=== PATIENT | male | born 1995 | race Caucasian/White ===

== ENCOUNTER 2016-11-09 21:41 | Emergency (ER) | payer BC ==
--- NOTE | 2016-11-09 22:05 | ED ---
General Adult HPI - General Chief complaint: Chest Pain Stated complaint: Chest Pain Time Seen by Provider: 11/09/16 21:52 Source: patient, RN notes reviewed Mode of arrival: wheelchair Limitations: no limitations - History of Present Illness Initial comments: Patient 21-year-old male who presents emergency room today with chief complaint of chest pain off and on over the last 3 days. He describes it as a "pressure" . He states that only happens for a few seconds to minutes time. States earlier today he felt that he was lightheaded almost fainted. He states that when he came back around to feeling normally noticed that his heart was racing more. He states since this time having these feelings more often. Since that time currently no pain. He denies headache with associated symptoms. Does admit to increased waking last 4 months. States appetite has not been well as it been eating more junk food. States been less active not riding his bike. Patient denies any recent fever, chills, shortness of breath, back pain, abdominal pain, nausea or vomiting, numbness or tingling, dysuria or hematuria, constipation or diarrhea, headaches or visual changes, or any other complaints. - Related Data Home Medications Medication Instructions Recorded Confirmed No Known Home Medications [No 11/09/16 11/09/16 Known Home Medications] Allergies Allergy/AdvReac Type Severity Reaction Status Date / Time No Known Allergies Allergy Verified 11/09/16 22:13 Review of Systems ROS Statement: Those systems with pertinent positive or pertinent negative responses have been documented in the HPI. ROS Other: All systems not noted in ROS Statement are negative. Past Medical History Past Medical History: No Reported History History of Any Multi-Drug Resistant Organisms: None Reported Past Surgical History: No Surgical Hx Reported Past Psychological History: No Psychological Hx Reported Smoking Status: Current every day smoker Past Alcohol Use History: Occasional Past Drug Use History: None Reported General Exam - General Exam Comments Initial Comments: General: The patient is awake and alert, in no distress, and does not appear acutely ill. Eye: Pupils are equal, round and reactive to light, extra-ocular movements are intact. No nystagmus. There is normal conjunctiva bilaterally. No signs of icterus. Ears, nose, mouth and throat: There are moist mucous membranes and no oral lesions. Neck: The neck is supple, there is no tenderness or JVD. Cardiovascular: There is a regular rate and rhythm. No murmur, rub or gallop is appreciated. Respiratory: Lungs are clear to auscultation, respirations are non-labored, breath sounds are equal. No wheezes, stridor, rales, or rhonchi. Gastrointestinal: Soft, non-distended, non-tender abdomen without masses or organomegaly noted. There is no rebound or guarding present. No CVA tenderness. Bowel sounds are unremarkable. Musculoskeletal: Normal ROM, no tenderness. Strength 5/5. Sensation intact. Pulses equal bilaterally 2+. Neurological: A&O x 3. CN II-XII intact, There are no obvious motor or sensory deficits. Coordination appears grossly intact. Speech is normal. Skin: Skin is warm and dry and no rashes or lesions are noted. Psychiatric: Cooperative, appropriate mood & affect, normal judgment. Limitations: no limitations Course Vital Signs 11/09/16 11/09/16 21:44 22:32 Temperature 97.8 F 97.3 F L Pulse Rate 78 60 Respiratory 20 18 Rate Blood Pressure 150/88 165/88 O2 Sat by Pulse 100 98 Oximetry EKG Findings - EKG Comments: EKG Findings:: EKG performed at 2159: Shows normal sinus rhythm at 67 bpm. VT interval 132. QRS 102. QT/QTC 360/380. Medical Decision Making - Medical Decision Making Patient reexamined at this time shows no signs of distress. He wasn't overtly in the stretcher. He has no chest pain here in the emergency room. His vitals are stable. His EKG shows normal sinus rhythm. Patient's labs been reviewed are unremarkable. Negative cardiac enzymes. Patient's symptoms started earlier today have been persistent over the last 2-3 days. Patient will be discharged home at this time advised follow up his family doctor. He states does not have will be given on-call family medicine. Discussed with patient about possible Holter monitor. Patient advised to return to emergency room symptoms increase or worsen or for any other concerns. patient states understanding and is in agreement with this plan. - Lab Data Result diagrams: 11/09/16 22:20 11/09/16 22:20 Lab Results 11/09/16 11/09/16 11/09/16 Range/Units 22:20 22:20 22:20 WBC 9.1 (3.8-10.6) k/uL RBC 5.48 (4.30-5.90) m/uL Hgb 16.3 (13.0-17.5) gm/dL Hct 46.8 (39.0-53.0) % MCV 85.4 (80.0-100.0) fL MCH 29.7 (25.0-35.0) pg MCHC 34.7 (31.0-37.0) g/dL RDW 12.1 (11.5-15.5) % Plt Count 234 (150-450) k/uL Neutrophils % 55 % Lymphocytes % 27 % Monocytes % 12 % Eosinophils % 2 % Basophils % 1 % Neutrophils # 5.0 (1.3-7.7) k/uL Lymphocytes # 2.4 (1.0-4.8) k/uL Monocytes # 1.1 H (0-1.0) k/uL Eosinophils # 0.2 (0-0.7) k/uL Basophils # 0.1 (0-0.2) k/uL PT (9.0-12.0) sec INR (<1.1) APTT (22.0-30.0) sec Sodium 139 (137-145) mmol/L Potassium 4.2 (3.5-5.1) mmol/L Chloride 101 (98-107) mmol/L Carbon Dioxide 25 (22-30) mmol/L Anion Gap 13 mmol/L BUN 13 (9-20) mg/dL Creatinine 1.09 (0.66-1.25) mg/dL Est GFR (MDRD) Af Amer >60 (>60 ml/min/1.73 sqM) Est GFR (MDRD) Non-Af >60 (>60 ml/min/1.73 sqM) Glucose 87 (74-99) mg/dL Calcium 9.9 (8.4-10.2) mg/dL Magnesium 2.0 (1.6-2.3) mg/dL Total Bilirubin 0.6 (0.2-1.3) mg/dL AST 32 (17-59) U/L ALT 39 (21-72) U/L Alkaline Phosphatase 133 H (38-126) U/L Total Creatine Kinase 126 (55-170) U/L CK-MB (CK-2) 0.5 (0.0-2.4) ng/mL CK-MB (CK-2) Rel Index 0.4 Troponin I <0.012 (0.000-0.034) ng/mL Total Protein 7.8 (6.3-8.2) g/dL Albumin 4.8 (3.5-5.0) g/dL 11/09/16 Range/Units 22:20 WBC (3.8-10.6) k/uL RBC (4.30-5.90) m/uL Hgb (13.0-17.5) gm/dL Hct (39.0-53.0) % MCV (80.0-100.0) fL MCH (25.0-35.0) pg MCHC (31.0-37.0) g/dL RDW (11.5-15.5) % Plt Count (150-450) k/uL Neutrophils % % Lymphocytes % % Monocytes % % Eosinophils % % Basophils % % Neutrophils # (1.3-7.7) k/uL Lymphocytes # (1.0-4.8) k/uL Monocytes # (0-1.0) k/uL Eosinophils # (0-0.7) k/uL Basophils # (0-0.2) k/uL PT 11.4 (9.0-12.0) sec INR 1.1 (<1.1) APTT 24.0 (22.0-30.0) sec Sodium (137-145) mmol/L Potassium (3.5-5.1) mmol/L Chloride (98-107) mmol/L Carbon Dioxide (22-30) mmol/L Anion Gap mmol/L BUN (9-20) mg/dL Creatinine (0.66-1.25) mg/dL Est GFR (MDRD) Af Amer (>60 ml/min/1.73 sqM) Est GFR (MDRD) Non-Af (>60 ml/min/1.73 sqM) Glucose (74-99) mg/dL Calcium (8.4-10.2) mg/dL Magnesium (1.6-2.3) mg/dL Total Bilirubin (0.2-1.3) mg/dL AST (17-59) U/L ALT (21-72) U/L Alkaline Phosphatase (38-126) U/L Total Creatine Kinase (55-170) U/L CK-MB (CK-2) (0.0-2.4) ng/mL CK-MB (CK-2) Rel Index Troponin I (0.000-0.034) ng/mL Total Protein (6.3-8.2) g/dL Albumin (3.5-5.0) g/dL Disposition Clinical Impression: Sensation of chest pressure Narrative: Chest pressure resolved Disposition: HOME SELF-CARE Condition: Good Instructions: Chest Pain (ED) Additional Instructions: Please follow-up with family doctor in the next 1-2 days. Please return to emergency room if the symptoms increase or worsen or for any other concerns. Referrals: None,Stated [Primary Care Provider] - 1-2 days Nguyễn Tamez MD [REFERRING] - 1-2 days Katie Almeida MD [STAFF PHYSICIAN] - 1-2 days Time of Disposition: 23:14
[2016-11-09 22:30] LABS: Basophils # (A) 0.1 k/uL (0-0.2); Basophils % (A) 1 %; CH 30.4; CHCM 35.7; Eosinophils # (A) 0.2 k/uL (0-0.7); Eosinophils % (A) 2 %; HCT 46.8 % (39.0-53.0); HDW 2.61; HGB 16.3 gm/dL (13.0-17.5); Luc # (Auto) 0.24; Luc % (Auto) 3; Lymphocytes # (A) 2.4 k/uL (1.0-4.8); Lymphocytes % (A) 27 %; MCH 29.7 pg (25.0-35.0); MCHC 34.7 g/dL (31.0-37.0); MCV 85.4 fL (80.0-100.0); Mean Platelet Volume 6.8; Monocytes # (A) 1.1 k/uL (0-1.0); Monocytes % (A) 12 %; Neutrophils % (A) 55 %; RBC 5.48 m/uL (4.30-5.90); RDW 12.1 % (11.5-15.5); WBC 9.1 k/uL (3.8-10.6); WBC (Perox) 8.86
[2016-11-09 22:33] VITALS: RESP 18
[2016-11-09 22:40] LABS: ALT 39 U/L (21-72); AST 32 U/L (17-59); Alkaline Phosphatase 133 U/L (38-126); Anion Gap 13 mmol/L; Blood Urea Nitrogen 13 mg/dL (9-20); Calcium 9.9 mg/dL (8.4-10.2); Carbon Dioxide 25 mmol/L (22-30); Chloride 101 mmol/L (98-107); Glucose 87 mg/dL (74-99); Non-African American GFR(MDRD) >60 (>60 ml/min/1.73 sqM); Potassium 4.2 mmol/L (3.5-5.1); Sodium 139 mmol/L (137-145); Total Bilirubin 0.6 mg/dL (0.2-1.3); Total Protein 7.8 g/dL (6.3-8.2)
[2016-11-09 22:48] LABS: Creatine Kinase 126 U/L (55-170)
[2016-11-09 22:52] LABS: INR 1.1 (<1.1); Prothrombin Time 11.4 sec (9.0-12.0)
--- NOTE | 2016-11-09 22:56 | XR ---
EXAMINATION TYPE: XR chest 2V DATE OF EXAM: 11/09/2016 10:49 PM COMPARISON: 09/10/2013 HISTORY: Chest pain TECHNIQUE: Frontal and lateral views of the chest are obtained. FINDINGS: Heart and mediastinum are normal. Lungs are clear. Diaphragm is normal. Bony thorax and so ft tissues appear normal. IMPRESSION: Normal chest. No change
[2016-11-09 22:59] LABS: Creatine Kinase MB 0.5 ng/mL (0.0-2.4); Troponin I <0.012 ng/mL (0.000-0.034)
[2016-11-09 23:32] VITALS: BP 151/85; PULSE 69; TEMP 98
== END 2016-11-09 23:31 | disposition home or self-care (01) ==
LOC: EC 21:41
DX: R07.89 Other chest pain (principal); F17.200 Nicotine dependence, unspecified, uncomplicated
CPT/HCPCS: 36415; 71020; 80053; 82550; 82553; 83735; 84484; 85025; 85610; 85730; 93005; 99285

== ENCOUNTER 2017-05-12 19:13 | Emergency (ER) | payer BC ==
[2017-05-12 19:26] VITALS: BP 133/75; PULSE 60; RESP 18; TEMP 97.9
--- NOTE | 2017-05-12 19:53 | ED ---
General Adult HPI - General Chief complaint: Neck Pain/Injury Stated complaint: Neck Pain Time Seen by Provider: 05/12/17 19:15 Source: patient, RN notes reviewed Mode of arrival: ambulatory Limitations: no limitations - History of Present Illness Initial comments: This is a 22-year-old male who presents emergency Department complaining of having a sharp pain in the right side of his neck that last between 10 and 15 seconds. Patient states happened once yesterday and then never occurred again "bad and woke up at about 11:00 last night and vomited times one. Patient states he woke up today and had neck pain for one more time and then he went to work. 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 Patient states he had no pain no vomiting the rest of the day. Patient states he couldn't stop "he wanted to be checked out. Patient denies headache patient denies numbness weakness. Patient denies chest pain difficulty breathing first breath per patient denies any recent fever chills or cough. Patient denies any increased pain with movement. Patient denies any recent injury or trauma. - Related Data Home Medications Medication Instructions Recorded Confirmed No Known Home Medications [No 11/09/16 11/09/16 Known Home Medications] Allergies Allergy/AdvReac Type Severity Reaction Status Date / Time No Known Allergies Allergy Verified 05/12/17 19:25 Review of Systems ROS Statement: Those systems with pertinent positive or pertinent negative responses have been documented in the HPI. ROS Other: All systems not noted in ROS Statement are negative. Past Medical History Past Medical History: No Reported History History of Any Multi-Drug Resistant Organisms: None Reported Past Surgical History: No Surgical Hx Reported Past Psychological History: Anxiety, Depression Smoking Status: Current every day smoker Past Alcohol Use History: Occasional Past Drug Use History: None Reported General Exam - General Exam Comments Initial Comments: GENERAL: Patient is well-developed and well-nourished. Patient is nontoxic and well- hydrated and is in no acute distress. ENT: Neck is soft and supple. No significant lymphadenopathy is noted. Oropharynx is clear. Moist mucous membranes. Neck has full range of motion without eliciting any pain. EYES: The sclera were anicteric and conjunctiva were pink and moist. Extraocular movements were intact and pupils were equal round and reactive to light. Eyelids were unremarkable. PULMONARY: Unlabored respirations. Good breath sounds bilaterally. No audible rales rhonchi or wheezing was noted. CARDIOVASCULAR: There is a regular rate and rhythm without any murmurs gallops or rubs. SKIN: Skin is clear with no lesions or rashes and otherwise unremarkable. NEUROLOGIC: Patient is alert and oriented x3. Cranial nerves II through XII are grossly intact. Motor and sensory are also intact. Normal speech, volume and content. Symmetrical smile. MUSCULOSKELETAL: Normal extremities with adequate strength and full range of motion. No lower extremity swelling or edema. No calf tenderness. PSYCHIATRIC: Normal psychiatric evaluation. Normal interpersonal interactions appears functionally intact in deals appropriately with others. Patient is mildly anxious Limitations: no limitations Course Vital Signs 05/12/17 19:21 Temperature 97.9 F Pulse Rate 60 Respiratory 18 Rate Blood Pressure 133/75 O2 Sat by Pulse 99 Oximetry Medical Decision Making - Medical Decision Making Patient is currently asymptomatic. Patient appears to be highly anxious Disposition Clinical Impression: Neck pain Disposition: HOME SELF-CARE Instructions: Neck Pain (ED) Referrals: None,Stated [Primary Care Provider] - 1-2 days Time of Disposition: 19:52
== END 2017-05-12 20:22 | disposition home or self-care (01) ==
LOC: EC 19:13
DX: M54.2 Cervicalgia (principal); F17.200 Nicotine dependence, unspecified, uncomplicated
CPT/HCPCS: 99283

== ENCOUNTER 2020-02-15 20:33 | Emergency (ER) | payer OTHER ==
[2020-02-15] MEDS ORDERED: DIPH,PERTUS(ACELL)TETVAC-LF 0.5 ML VIAL IM ONE (20:34)
[2020-02-15] MEDS ORDERED: SODIUM CHLORIDE 0.9% 1,000 ML IV STA (20:34)
[2020-02-15 20:56] LABS: Basophils # (A) 0.1 k/uL (0-0.2); Basophils % (A) 1 %; Eosinophils # (A) 0.1 k/uL (0-0.7); Eosinophils % (A) 1 %; HCT 39.1 % (39.0-53.0); HGB 13.1 gm/dL (13.0-17.5); Lymphocytes # (A) 2.6 k/uL (1.0-4.8); Lymphocytes % (A) 13 %; MCH 30.8 pg (25.0-35.0); MCHC 33.4 g/dL (31.0-37.0); MCV 92.3 fL (80.0-100.0); Mean Platelet Volume 6.9; Monocytes # (A) 1.8 k/uL (0-1.0); Monocytes % (A) 9 %; Neutrophils # (A) 14.3 k/uL (1.3-7.7); Neutrophils % (A) 74 %; Platelet Count 257 k/uL (150-450); RBC 4.24 m/uL (4.30-5.90); RDW 12.7 % (11.5-15.5); WBC 19.3 k/uL (3.8-10.6)
[2020-02-15] MEDS ORDERED: fentaNYL (PF) 50 MCG/ML 2 ML AMP IVP PRN (21:00)
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
[2020-02-15] MEDS: fentaNYL (PF) 50 MCG/ML 2 ML AMP IVP PRN ×4 (21:05→22:00)
[2020-02-15 21:08] LABS: ALT 231 U/L (4-49); AST 401 U/L (17-59); African American GFR (CKD) >90 (>60 ml/min/1.73 sqM); Albumin 3.5 g/dL (3.5-5.0); Alcohol <10 mg/dL; Alkaline Phosphatase 86 U/L (38-126); Amylase 40 U/L (30-110); Anion Gap 8 mmol/L; Blood Urea Nitrogen 16 mg/dL (9-20); Calcium 8.3 mg/dL (8.4-10.2); Carbon Dioxide 24 mmol/L (22-30); Chloride 104 mmol/L (98-107); Glucose 127 mg/dL (74-99); Non-African American GFR(CKD) 85 (>60 ml/min/1.73 sqM); Sodium 136 mmol/L (137-145); Total Bilirubin 0.4 mg/dL (0.2-1.3); Total Protein 6.1 g/dL (6.3-8.2)
[2020-02-15 21:10] LABS: Creatine Kinase 448 U/L (55-170)
[2020-02-15 21:15] LABS: INR 1.1 (<1.2); Prothrombin Time 10.9 sec (9.0-12.0)
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
[2020-02-15 21:20] LABS: Partial Thromboplastin Time 20.2 sec (22.0-30.0); Potassium 3.5 mmol/L (3.5-5.1)
[2020-02-15 21:23] LABS: Creatine Kinase MB 1.9 ng/mL (0.0-2.4); Troponin I <0.012 ng/mL (0.000-0.034)
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
[2020-02-15] MEDS ORDERED: TRANEXAMIC ACID 1,000 MG in SODIUM CHLORIDE 0.9% 100 ML IV ONE (21:45)
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
--- NOTE | 2020-02-15 22:15 | XR ---
EXAMINATION TYPE: XR femur LT DATE OF EXAM: 02/15/2020 COMPARISON: Today HISTORY: Post reduction TECHNIQUE: 2 views FINDINGS: There is comminuted fracture of the left femur in the subtrochanteric region. There is large butterfl y fragment. There is separation of the fragments up to 2 cm. Compared to initial exam. Limited exam. Exam is limited. IMPRESSION: Significant improvement apposition and alignment of the fragments
[2020-02-15] MEDS ORDERED: ONDANSETRON 4 MG/2 ML VIAL IVP STA (22:23)
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
[2020-02-15 23:16] VITALS: BP 132/90; PULSE 108; RESP 18; TEMP 98
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
== END 2020-02-15 22:53 | disposition other institution (70) ==
LOC: EC 20:33
DX: S72.352A Displaced comminuted fracture of shaft of left femur, initial encounter for closed fracture (principal); S22.39XA Fracture of one rib, unspecified side, initial encounter for closed fracture; S32.021A Stable burst fracture of second lumbar vertebra, initial encounter for closed fracture; S36.113A Laceration of liver, unspecified degree, initial encounter; S01.411A Laceration without foreign body of right cheek and temporomandibular area, initial encounter; S61.412A Laceration without foreign body of left hand, initial encounter; R55 Syncope and collapse; Z23 Encounter for immunization; R00.0 Tachycardia, unspecified; F17.200 Nicotine dependence, unspecified, uncomplicated; V28.4XXA Motorcycle driver injured in noncollision transport accident in traffic accident, initial encounter; Y92.488 Other paved roadways as the place of occurrence of the external cause; Y93.55 Activity, bike riding
CPT/HCPCS: 99291; 99292; 96365; 96375 ×3; 90471; 27502; 36415; 93005; 86900; 86901; 80053; 82150; 82550; 82553; 83605; 83690; 84484; 85025; 85610; 85730; 86850; 86920; 80320; 72170; 73552; 71045; 72125; 70486; 70450; 71260; 74177; 90715; J2405; J0690; J3010; Q9967

== ENCOUNTER → 2020-06-22 | Outpatient (CLI) | payer OTHER ==
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
--- NOTE | 2020-06-22 17:01 | XR ---
EXAMINATION TYPE: XR lumbosacral spine min 4V DATE OF EXAM: 06/22/2020 CLINICAL HISTORY: Stable burst fracture of lumbar spine TECHNIQUE: Frontal neutral/flexion/extension, lateral, and oblique images of the lumbar spine are obt ained. COMPARISON: CT lumbar spine 06/22/2020. CT chest abdomen pelvis 02/15/2020. FINDINGS: There are 5 lumbar type vertebral bodies identified. There is vertebral body fracture of L 2 which is better appreciated on CT comparisons, with minimal posterior displacement which does not c hange between flexion, extension, and neutral lateral views of the spine. There is asymmetric mild he ight loss of the right L2 vertebral body redemonstrated. Remaining vertebral heights are normal. No s ignificant disc space narrowing. The overlying soft tissue appears unremarkable. IMPRESSION: L2 vertebral body burst fracture is better appreciated on CT comparisons. There is minimal posterior displacement, which does not significantly change between flexion and extension.
== END | disposition home or self-care (01) ==
LOC: RADCTMAIN 07:11
PROVIDERS: ATTEND Specialist
DX: M51.26 Other intervertebral disc displacement, lumbar region (principal); S32.021G Stable burst fracture of second lumbar vertebra, subsequent encounter for fracture with delayed healing
CPT/HCPCS: 72110; 72131

== ENCOUNTER → 2020-08-09 | Outpatient (CLI) | payer OTHER ==
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
== END ==
LOC: RADMRIMAIN 21:14
PROVIDERS: ATTEND Orthopaedic Surgery
DX: S83.281A Other tear of lateral meniscus, current injury, right knee, initial encounter (principal)

== ENCOUNTER → 2020-09-27 | Outpatient (CLI) | payer OTHER ==
--- NOTE | 2020-09-27 10:57 | CT ---
EXAMINATION TYPE: CT lumbar spine wo con DATE OF EXAM: 09/27/2020 9:40 AM COMPARISON: CT lumbar spine June 22, 2020 HISTORY: follow up burst fracture second lumbar vertebrae CT DLP: 967 mGycm Automated exposure control for dose reduction was used. Unenhanced CT of the lumbar spine was performed. Bone and soft tissue window settings are submitted as well as coronal and sagittal reconstructions. Redemonstration of 5 lumbar type vertebra. Persistent healing or healed fracture deformity through th e right aspect of the L2 vertebra with slight posterior retropulsion estimated up to 3 mm. No change from prior. No new fracture or dislocation. Stable slight scoliotic curvature on coronal images. Vert ebral body heights and disc space heights otherwise are maintained. Axial images show no new significant disc herniation. Incidental normal-appearing appendix, cecum and the right lower quadrant. IMPRESSION: Healing or healed L2 burst type fracture with stable alignment. Slight posterior retropul ilya is stable. No new fracture is evident.
== END | disposition home or self-care (01) ==
LOC: RADCTMAIN 08:56
PROVIDERS: ATTEND Nurse Practitioner
DX: M54.5 Low back pain (principal); G89.29 Other chronic pain; S32.021D Stable burst fracture of second lumbar vertebra, subsequent encounter for fracture with routine healing
CPT/HCPCS: 72131

== ENCOUNTER → 2021-01-28 | Outpatient (CLI) | payer OTHER ==
--- NOTE | 2021-01-28 12:40 | CT ---
EXAMINATION TYPE: CT lumbar spine wo con DATE OF EXAM: 01/28/2021 COMPARISON: HISTORY: Stable burst fracture of second Lumbar CT DLP: 887 mGycm CONTRAST: None TECHNIQUE: CT of the lumbar spine is performed on a spiral scan at 3 mm thick sections. Reconstructed images are performed in the coronal and sagittal planes. FINDINGS: L2: There is an oblique fracture from the right anterior lateral vertebral body to the posterior vert ebral body. There is approximately 0.5 cm posterior displacement of the right aspect of the fracture fragment. Second fracture line may be at the right pedicle. No spinal canal stenosis or foraminal jose nosis is present. Intervertebral disc spaces: No focal disc herniation or significant disc bulge is evident. No spina l canal stenosis or neural foraminal stenosis is present. Mild disc bulging with anterior thecal sac L4-5 may be present. Minimal disc bulge at L3-4 with intrathecal sac contact is present. IMPRESSION: 1. Old fracture of L2 with approximately 0.5 cm posterior wall displacement, stable from September
== END | disposition home or self-care (01) ==
LOC: RADCTMAIN 07:09
PROVIDERS: ATTEND Specialist
DX: S32.021A Stable burst fracture of second lumbar vertebra, initial encounter for closed fracture (principal)
CPT/HCPCS: 72131

== ENCOUNTER → 2023-12-26 | Outpatient (CLI) | payer BC ==
[2023-12-26 07:42] LABS: African American GFR (CKD) >90 (>60 ml/min/1.73 sqM); Anion Gap 9 mmol/L; Blood Urea Nitrogen 10 mg/dL (9-20); Carbon Dioxide 24 mmol/L (22-30); Chloride 107 mmol/L (98-107); Glucose 100 mg/dL (74-99); Non-African American GFR(CKD) >90 (>60 ml/min/1.73 sqM); Potassium 3.8 mmol/L (3.5-5.1); Sodium 140 mmol/L (137-145)
[2023-12-26 07:46] LABS: Basophils % (A) 0 %; Eosinophils # (A) 0.1 k/uL (0-0.7); Eosinophils % (A) 2 %; HCT 42.9 % (39.0-53.0); HGB 14.9 gm/dL (13.0-17.5); Lymphocytes # (A) 1.5 k/uL (1.0-4.8); Lymphocytes % (A) 23 %; MCH 30.4 pg (25.0-35.0); MCHC 34.8 g/dL (31.0-37.0); MCV 87.3 fL (80.0-100.0); Mean Platelet Volume 7.2; Monocytes # (A) 0.8 k/uL (0-1.0); Monocytes % (A) 12 %; Neutrophils % (A) 60 %; Platelet Count 243 k/uL (150-450); RBC 4.91 m/uL (4.30-5.90); RDW 12.4 % (11.5-15.5); WBC 6.7 k/uL (3.8-10.6)
[2023-12-26 07:51] LABS: INR 1.3 (<1.2); Partial Thromboplastin Time 31.7 sec (22.0-30.0); Prothrombin Time 13.6 sec (10.0-12.5)
[2023-12-26 07:51] LABS: Appearance,Urine Clear (Clear); Bilirubin,Urine Negative (Negative); Blood,Urine Negative (Negative); Color,Urine Colorless; Glucose,Urine (UA) Negative (Negative); Ketones,Urine Negative (Negative); Leukocyte Esterase,Urine Negative (Negative); Nitrite,Urine Negative (Negative); PH, Urine 5.5 (5.0-8.0); Protein,Urine Negative (Negative); Specific Gravity,Urine 1.008 (1.001-1.035); Urobilinogen,Urine <2.0 mg/dL (<2.0)
== END | disposition home or self-care (01) ==
LOC: LABWHC1 07:10
PROVIDERS: ATTEND Thoracic Surgery (Cardiothoracic Vascular Surgery)
DX: Z01.812 Encounter for preprocedural laboratory examination (principal); Z98.890 Other specified postprocedural states
CPT/HCPCS: 36415; 80051; 81003; 82565; 82947; 84520; 85025; 85610; 85730; 86850; 86900; 86901

== ENCOUNTER → 2023-12-27 | Day surgery (SDC) | payer BC, OTHER ==
[~2023-12-27] MED LIST: DEXAMETHASONE SOD PHOSPHATE 4 MG/ML 1 ML VIAL ONE; GLYCOPYRROLATE 0.2 MG/ML 2 ML VIAL ONE; LIDOCAINE 1% (10MG/ML) FOR IV START INTRADERMA PRN; LIDOCAINE 1% INJ 10MG/ML (20 ML MDV) ONE; MIDAZOLAM 2 MG/2 ML VIAL ONE; NEOSTIGMINE 1 MG/ML 10 ML VIAL ONE; PROPOFOL 10 MG/ML 20 ML VIAL IV ONE; ROCURONIUM 10 MG/ML (5 ML VIAL) IV ONE; ROPIVACAINE 5 MG/ML 30 ML VIAL ONE; SODIUM CHLORIDE 0.9% (PF) 10 ML VIAL ONE; SUCCINYLCHOLINE CHLORIDE 200 MG/10 ML VIAL IV ONE; fentaNYL (PF) 50 MCG/ML 2 ML AMP ONE
[2023-12-27] MEDS: LACTATED RINGERS 1,000 ML IV SCH (13:29)
[2023-12-27] MEDS: DEXAMETHASONE SOD PHOSPHATE 4 MG/ML 1 ML VIAL IV ONE (13:52)
[2023-12-27] MEDS: MIDAZOLAM 2 MG/2 ML VIAL IV PRN (14:05)
[2023-12-27] MEDS: ONDANSETRON 4 MG/2 ML VIAL IVP ONE (14:14)
[2023-12-27] MEDS: BUPIVACAINE (PF) 0.25% 30 ML VIAL SQ ONE ×2 (15:20)
--- NOTE | 2023-12-27 15:52 | P.OP ---
Date of Procedure: 12/27/23 Preoperative Diagnosis: 1. Right 5th rib mass Postoperative Diagnosis: Same Implants: None Anesthesia: ANNETTEA Surgeon: Prasanna Reyes Estimated Blood Loss (ml): 50 Pathology: other (right 5th rib) Condition: stable Disposition: PACU Indications for Procedure: This patient presented to me with a new lesion on his rib that began about a year ago. CT scan confirmed the lesion and I recommended resection. Operative Findings: Partial resection of right 5th rib. Description of Procedure: The patient was brought back to the operating room and placed in the supine position. General anesthesia was induced and he was intubated with a single lumen tube. His right chest was prepped and draped in the usual sterile fashion. Antibiotics were given. I made a transverse incision over the lesion and carried it down to the rib. This was circumferentially dissected and an oscillating saw was used to carve out the lesion. The intercostal artery was then doubly clipped and hemostasis was achieved. The muscle was closed with 0-vicryl and deep dermis with 2-0 vicryl. Skin was closed with 4-0 monocryl and glue.
[2023-12-27] MEDS: HYDROmorphone 0.5 MG/0.5 ML SYRINGE IVP PRN (16:05)
[2023-12-27 16:25] VITALS: TEMP 97.7
--- NOTE | 2023-12-27 16:36 | XR ---
EXAMINATION TYPE: XR chest 1V portable DATE OF EXAM: 12/27/2023 4:27 PM CLINICAL INDICATION:Male, 28 years old with history of post op right rib resection; COMPARISON: 02/15/2020 TECHNIQUE: XR chest 1V portable Frontal view of the chest. FINDINGS: Lungs/Pleura: There is no evidence of pleural effusion, focal consolidation, or pneumothorax. Pulmonary vascularity: Unremarkable. Heart/mediastinum: Cardiomediastinal silhouette is unremarkable. Musculoskeletal: No acute osseous pathology. IMPRESSION: No acute cardiopulmonary disease/process.
[2023-12-27] MEDS: HYDROmorphone 0.5 MG/0.5 ML SYRINGE IVP ONE (16:50)
[2023-12-27 16:57] VITALS: RESP 16
[2023-12-27 17:29] VITALS: BP 138/80; PULSE 56
--- NOTE | 2023-12-27 20:48 | P.ANPRN ---
Procedure Note - Anesthesia - Nerve Block Performed Right Erector Spinae Single Time Out Performed: Yes Date of Procedure: 12/27/23 Procedure Start Time: 12:04 Procedure Stop Time: 12:08 Location of Patient: PreOp Indication: Acute Post-Operative Pain, Requested by Surgeon Sedation Type: Sedate with meaningful contact maintained Preparation: Sterile Prep Position: Sitting Needle Types: Pajunk Needle Gauge: 21 Ultrasound used to visualize needle placement: Yes Ultrasound used to observe medication spread: Yes Blood Aspirated: No Pain Paresthesia on Injection Noted: No Resistance on Injection: Normal Image Stored and Saved: Yes Events: Uneventful and Well Tolerated (Ropivacaine 0.5% 10 cc plus normal saline 10 cc plus dexamethasone 4 mg given at T6 on the right side)
== END | disposition home or self-care (01) ==
LOC: OR 12:37 → EDSTATUS 13:15
PROVIDERS: ATTEND Thoracic Surgery (Cardiothoracic Vascular Surgery)
DX: D16.7 Benign neoplasm of ribs, sternum and clavicle (principal); F12.90 Cannabis use, unspecified, uncomplicated; F17.200 Nicotine dependence, unspecified, uncomplicated; Z98.890 Other specified postprocedural states
CPT/HCPCS: 64999; 88307; 88311; 71045; 21601; J2250; J0330; J1100; J2710; J0690; J2405; J2001; J3010; J2795; J2704; J1170; J0665

== ENCOUNTER → 2024-07-01 | Outpatient (CLI) | payer BC ==
--- NOTE | 2024-07-14 16:47 | CT ---
EXAMINATION TYPE: CT chest wo con DATE OF EXAM: 07/01/2024 COMPARISON: 02/15/2020 HISTORY: Chest lump, anterior chest (marked with BB). Prior removal appears to be growing back CT DLP: 198.4 mGycm, Automated exposure control for dose reduction was used. CONTRAST: Performed injected with 0 mL of Isovue 300. TECHNIQUE: Axial images were obtained at 5 mm thick sections. Reconstructed images are reviewed on [employer] computer in the coronal plane. FINDINGS: Portion of the thyroid visualized is normal. No suspicious lung nodules or focal infiltrates are present. No enlarged mediastinal or hilar adenopathy is evident. The ascending aorta diameter at the level o f the main pulmonary artery is 3.5 cm. The main pulmonary artery diameter at the bifurcation is 2.[address] sections are obtained through the upper abdomen. Abdomen is essentially unremarkable. Anterior right sixth rib has a density extending anteriorly at the level of the BB. The costochondral cartilage appears to be rotated. Correlate for prior trauma. Cortex is indistinct. Underlying mass s hould be considered. Additional workup is recommended. IMPRESSION: 1. Anterior right sixth rib end has deviation anteriorly. Correlate for old trauma. The cortex is not well-visualized. Underlying lesion should be considered. Additional workup is recommended. This area correlates with the palpable area in the anterior right chest. [facility], , 07/14/2024 4:45 PM
== END | disposition home or self-care (01) ==
LOC: RADCTMAIN 06:50
PROVIDERS: ATTEND Thoracic Surgery (Cardiothoracic Vascular Surgery)
DX: R22.2 Localized swelling, mass and lump, trunk (principal)
CPT/HCPCS: 71250

== ENCOUNTER 2024-11-20 12:00 | Inpatient (IN) | payer BC ==
[2025-01-29] MEDS: IV FLUID CONTINUATION 1,000 ML IV ONE (06:22)
[2025-01-29] MEDS: ONDANSETRON 4 MG/2 ML VIAL IVP ONE (06:56)
[2025-01-29] MEDS: SCOPOLAMINE 1 MG/72 HR PATCH TRANSDERM STA (06:57)
[2025-01-29] MEDS: fentaNYL (PF) 50 MCG/ML 2 ML AMP IVP STA (06:59)
[2025-01-29] MEDS: MIDAZOLAM 2 MG/2 ML VIAL IV ONE (06:59)
[2025-01-29] MEDS: DEXAMETHASONE SOD PHOSPHATE 4 MG/ML 1 ML VIAL IV ONE (07:11)
[2025-01-29] MEDS ORDERED: fentaNYL (PF) 50 MCG/ML 2 ML AMP ONE (07:29)
[2025-01-29] MEDS ORDERED: GLYCOPYRROLATE 0.2 MG/ML 2 ML VIAL ONE (07:29)
[2025-01-29] MEDS ORDERED: PROPOFOL 10 MG/ML 20 ML VIAL IV ONE (07:29)
[2025-01-29] MEDS ORDERED: DEXAMETHASONE SOD PHOSPHATE 4 MG/ML 1 ML VIAL ONE (07:29)
[2025-01-29] MEDS ORDERED: SUCCINYLCHOLINE CHLORIDE 200 MG/10 ML VIAL IV ONE (07:29)
[2025-01-29] MEDS ORDERED: HYDROmorphone (PF) 1 MG/ML ONE (07:29)
[2025-01-29] MEDS ORDERED: NEOSTIGMINE 1 MG/ML 10 ML VIAL ONE (07:29)
[2025-01-29] MEDS ORDERED: ROPIVACAINE 5 MG/ML 30 ML VIAL ONE (07:29)
[2025-01-29] MEDS ORDERED: LIDOCAINE 1% INJ 10MG/ML (20 ML MDV) ONE (07:29)
[2025-01-29] MEDS ORDERED: MIDAZOLAM 2 MG/2 ML VIAL ONE (07:29)
[2025-01-29] MEDS ORDERED: ROCURONIUM 10 MG/ML (5 ML VIAL) IV ONE (07:29)
[2025-01-29] MEDS: ceFAZolin 2 GM in DEXTROSE 5% IN WATER 50 ML IVPB PRN (07:33)
[2025-01-29] MEDS: LACTATED RINGERS 1,000 ML IV ONE (09:14)
[2025-01-29] MEDS: HYDROmorphone 0.5 MG/0.5 ML SYRINGE IVP PRN (09:36)
--- NOTE | 2025-01-29 09:41 | P.OP ---
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 Reyes a year ago. Unfortunately the margins were positive and the tumor has recurred. Operative Findings: Tumor primarily within the sixth rib anterior to the previous resection. Description of Procedure: Patient was brought to the operating room and placed supine on the table. Anterior chest wall was sterilely prepped and draped. Incision was made over the sixth anterior costal cartilage. Dissection was carried down to the chest musculature. This was divided inferiorly and reflected up over the ribs. Muscle was fairly densely adherent to the area of recurrence. We freed proximally and distally. We then incised just under the seventh costal cartilage. The diaphragm was divided as it inserted on the 7th and 6th ribs. We freed the undersurface of the 6th and 7th ribs. There were now able to divide the 2 ribs laterally and then continue our resection medially superiorly till we came to the 6 costal cartilage. We divided this as we came medially. We then did the medial resection of the 7th, 6th and 5th costal cartilages as they exited from the sternum. This was performed with a merchandise distributor and with reciprocating saw. Specimen was removed and labeled and sent to pathology. The diaphragm was repaired primarily inferiorly. 0 Vicryl suture was used for this. We then fashioned a 2 mm [place] patch and sewed it to the ends of the costal cartilages circumferentially medially superiorly and laterally with [id number] 0 Ethibond sutures. There was secured inferiorly by again interrupted 0 Ethibond sutures to the diaphragm. With the patch in place we irrigated. Hemostasis was good. Muscle layers were closed as best as possible over the resultant space. This was fairly good laterally but medially we had a residual space. 19 [place] Ruiz drain was placed over the patch. Was brought out laterally. We then closed the subcutaneous tissues in 2 layers with running 0 Vicryl suture and the skin with a running Vicryl stitch. Skin glue and dry sterile dressings were applied.
[2025-01-29] MEDS ORDERED: bisacodyL 10 MG SUPP RECTAL PRN (10:13)
[2025-01-29] MEDS ORDERED: METOCLOPRAMIDE 5 MG/ML 2 ML VIAL IVP PRN (10:13)
[2025-01-29] MEDS ORDERED: IPRATROPIUM-ALBUTEROL 3 ML NEB IH PRN (10:13)
--- NOTE | 2025-01-29 10:42 | XR ---
EXAMINATION TYPE: XR chest 1V portable DATE OF EXAM: 01/29/2025 10:21 AM COMPARISON: 12/27/2023 CLINICAL INDICATION: Male, 29 years old with history of Postop right chest wall resection, , FINDINGS: Heart borderline enlarged. Interstitial and patchy opacities. No pleural effusion. IMPRESSION: Borderline heart size and new interstitial and patchy opacities. Correlate for possible etiologies tran ch as atypical pneumonias, aspiration, CHF, or interstitial pneumonitis. [facility], Workstation: [email or web address], 01/29/2025 10:40 AM
[2025-01-29] MEDS: traMADol 50 MG TAB PO PRN (10:54)
--- NOTE | 2025-01-29 10:57 | P.ANPRN ---
Procedure Note - Anesthesia - Nerve Block Performed Right Erector Spinae Single Time Out Performed: Yes (659) Date of Procedure: 01/29/25 Procedure Start Time: 07:00 Procedure Stop Time: 07:05 Location of Patient: PreOp Indication: Acute Post-Operative Pain, Requested by Surgeon Specifically requested for management of pain by DrClyde: Alex Parsons Sedation Type: Sedate with meaningful contact maintained Preparation: Sterile Prep Position: Supine Catheter: None Needle Types: Pajunk Needle Gauge: 21 Ultrasound used to visualize needle placement: Yes Ultrasound used to observe medication spread: Yes Injectate: 0.5% Ropivacaine (see comment for volume) (30cc +decadron 4 mg) Blood Aspirated: No Pain Paresthesia on Injection Noted: No Resistance on Injection: Normal Image Stored and Saved: Yes Events: Uneventful and Well Tolerated
[2025-01-29] MEDS: KETOROLAC 15 MG/ML 1 ML VIAL IVP SCH (11:52)
[2025-01-29] MEDS: DEXTROSE 5%-0.45% NACL 1,000 ML IV SCH (11:53)
[2025-01-29] MEDS: ACETAMINOPHEN IV (For NPO) 1,000 MG in EMPTY BAG 1 BAG IVPB SCH (11:53)
[2025-01-29] MEDS: IPRATROPIUM-ALBUTEROL 3 ML NEB IH SCH (12:39)
[2025-01-29] MEDS: ceFAZolin 2 GM in DEXTROSE 5% IN WATER 50 ML IVPB SCH (17:08)
[2025-01-29] MEDS: HEPARIN SODIUM,PORCINE 5,000 UNIT/ML 1 ML VIAL SQ SCH (17:11)
[2025-01-29] MEDS: ONDANSETRON 4 MG/2 ML VIAL IVP PRN (18:25)
[2025-01-29] MEDS: LACTATED RINGERS 1,000 ML IV SCH (20:10)
[2025-01-29] MEDS: FORMOTEROL FUMARATE 20 MCG/2 ML NEBU INHALATION SCH (20:25)
[2025-01-30] MEDS ORDERED: ACETAMINOPHEN TAB 325 MG TAB PO PRN (00:01)
[2025-01-30 06:44] LABS: Basophils # (A) 0.02 10*3/uL (0.00-0.10); Basophils % (A) 0.2 %; Eosinophils # (A) 0.02 10*3/uL (0.04-0.35); Eosinophils % (A) 0.2 %; HCT 39.2 % (39.6-50.0); HGB 13.5 g/dL (13.0-17.0); Lymphocytes # (A) 1.59 10*3/uL (0.90-5.00); Lymphocytes % (A) 12.6 %; MCH 30.3 pg (27.0-32.0); MCHC 34.4 g/dL (32.0-37.0); MCV 87.9 fL (80.0-97.0); Mean Platelet Volume 9.3 fL (9.5-12.2); Monocytes # (A) 1.11 10*3/uL (0.20-1.00); Monocytes % (A) 8.8 %; Neutrophils # (A) 9.85 10*3/uL (1.80-7.70); Neutrophils % (A) 77.7 %; Platelet Count 225 10*3/uL (140-440); RBC 4.46 10*6/uL (4.40-5.60); RDW 12.5 % (11.5-14.5); WBC 12.65 10*3/uL (4.50-10.00)
[2025-01-30 07:05] LABS: African American GFR (CKD) >90 (>60 ml/min/1.73 sqM); Anion Gap 5 mmol/L; Blood Urea Nitrogen 11 mg/dL (9-20); Calcium 9.4 mg/dL (8.4-10.2); Carbon Dioxide 30 mmol/L (22-30); Chloride 100 mmol/L (98-107); Glucose 115 mg/dL (74-99); Non-African American GFR(CKD) >90 (>60 ml/min/1.73 sqM); Potassium 4.4 mmol/L (3.5-5.1); Sodium 135 mmol/L (137-145)
--- NOTE | 2025-01-30 08:02 | XR ---
EXAMINATION TYPE: XR chest 2V DATE OF EXAM: 01/30/2025 6:27 AM COMPARISON: 01/29/2025 CLINICAL INDICATION: Male, 29 years old with history of postop right chest wall resection, , TECHNIQUE: PA and lateral views FINDINGS: Heart normal size. Aorta and pulmonary vasculature within normal limits. Considerable interval improv ement in the bilateral interstitial opacities. Some strandy atelectasis is noted at the left base. No pleural effusion. IMPRESSION: Resolution of previous abnormal interstitial opacities, possibly related to fluid overload. [facility], Workstation: [email or web address], 01/30/2025 8:00 AM
[2025-01-30 11:41] VITALS: BP 115/72; PULSE 70; RESP 15; TEMP 98.1
--- NOTE | 2025-01-30 11:53 | P.DS ---
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 Resection chest wall with patch closure with 2 mm [place]Geov[place] patch HISTORY OF PRESENT ILLNESS: This is a 29-year-old gentleman who follows on an outpatient basis with Sylvia Caldwell nurse practitioner for his primary care. 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 Prasanna Reyes on December 27, 2023. Since the patient's procedure the patient has had recurrent of 2 masses in the medial portion of the fifth rib which was confirmed on CT scan. Due to the recurrence of these 2 masses the patient was seen and examined by Dr. Alex Parsons, Dr. Parsons did explain to the patient that although the tumors are benign tumors they do tend to spread and grow and need to be removed and they are entirety. Risks and benefits of surgery were discussed with the patient by Dr. Parsons and knowing and understanding the risks the patient wished to proceed with the surgical procedure. HOSPITAL COURSE: The patient was admitted to the hospital on January 29, 2025, and after obtaining consent, he was taken to the preoperative area, prepared in the usual fashion and subsequently taken to the operating room where Dr. Alex Parsons performed a resection chest wall with patch closure with a 2 mm [place] patch. Upon completion of the surgery the patient was sent to the recovery unit for hemodynamic monitoring and recovery. He was subsequently transferred and admitted to the third floor cardiac stepdown unit for further monitoring and rehabilitation. His Ruiz drainage tube was removed without incident on postoperative day #1, he continued to use his incentive spirometry, his pain was controlled and he was ready to be discharged home on postoperative day #1. He received written and verbal instructions regarding his medications, activity restrictions, signs and symptoms requiring physician notification and his follow-up appointment. Plan - Discharge Summary Discharge Rx Participant: Yes New Discharge Prescriptions: New Acetaminophen Tab [Tylenol] 650 mg PO Q4HR PRN tab PRN Reason: Mild To Moderate Pain (1 - 6) traMADol HCl [Ultram] 100 mg PO QID PRN #12 tab PRN Reason: Severe Pain (Scale 7 To 10) Discharge Medication List Acetaminophen Tab [Tylenol] 650 mg PO Q4HR PRN tab 01/30/25 [Rx] traMADol HCl [Ultram] 100 mg PO QID PRN #12 tab 01/30/25 [Rx] Follow up Appointment(s)/Referral(s): Sylvia Caldwell NPC [REFERRING] - 1 Week Alex Parsons MD [STAFF PHYSICIAN] - 02/12/25 2:30 pm Patient Instructions/Handouts: *Surgery [facility] - Scopalamine Patch Instructions Activity/Diet/Wound Care/Special Instructions: DISCHARGE INSTRUCTIONS: 1. No driving for 2 weeks, or until physician gives their ok. 2. No lifting, pushing, or pulling more than 10 pounds for 12 weeks. The physician will advise of any restriction changes. 3. Continue pain control per as needed orders. Alternate acetaminophen (Tylenol) and ibuprofen (Motrin/Advil) for pain. 4. Continue with incentive spirometry and splinting/heart hugger until otherwise directed by the physician. 5. Must shower daily using liquid antibacterial soap and a separate white washcloth for each individual incision. 6. Routine incision care, no ointments, lotions or powders on the incisions. 7. Please notify surgeon/nurse practitioner for temperature greater than 101F or purulent drainage from incisions Discharge Disposition: HOME SELF-CARE
== END 2025-01-30 12:33 | disposition home or self-care (01) | DRG 517 ==
LOC: 2ORMAIN 01-29 06:06 → 3SCARD 01-29 09:52
PROVIDERS: ADMIT Thoracic Surgery (Cardiothoracic Vascular Surgery); ATTEND Thoracic Surgery (Cardiothoracic Vascular Surgery)
PROC: 0WU80JZ Supplement Chest Wall with Synthetic Substitute, Open Approach (ICD-10-PCS; principal; 2025-01-29 07:30)
PROC: 0PB20ZZ Excision of 3 or More Ribs, Open Approach (ICD-10-PCS; principal; 2025-01-29 07:30)
DX: D16.9 Benign neoplasm of bone and articular cartilage, unspecified (principal); F17.200 Nicotine dependence, unspecified, uncomplicated
CPT/HCPCS: 64466; 71045; 71046; 80048; 85025; 94640; 94760

== ENCOUNTER → 2025-01-27 | Outpatient (CLI) | payer BC ==
[2025-01-27 15:25] LABS: INR 0.9 (<1.2); Partial Thromboplastin Time 22.2 sec (22.0-30.0); Prothrombin Time 10.1 sec (10.0-12.5)
[2025-01-27 18:13] LABS: Basophils # (A) 0.02 X 10*3/uL (0.00-0.10); Basophils % (A) 0.3 %; Eosinophils # (A) 0.12 X 10*3/uL (0.04-0.35); HCT 43.2 % (39.6-50.0); HGB 14.7 g/dL (13.0-17.0); Lymphocytes # (A) 1.93 X 10*3/uL (0.90-5.00); Lymphocytes % (A) 31.9 %; MCH 29.6 pg (27.0-32.0); MCV 87.1 FL (80.0-97.0); Mean Platelet Volume 9.7 FL (9.5-12.2); Monocytes # (A) 0.42 X 10*3/uL (0.20-1.00); Monocytes % (A) 6.9 %; NRBC Per 100 WBC 0 X 10*3/uL (0.00-0.01); Neutrophils # (A) 3.55 X 10*3/uL (1.80-7.70); Neutrophils % (A) 58.7 %; Platelet Count 267 X 10*3/uL (140-440); RBC 4.96 X 10*6/uL (4.40-5.60); RDW 12.4 % (11.5-14.5); WBC 6.05 X 10*3/uL (4.50-10.00)
[2025-01-27 19:01] LABS: Blood Urea Nitrogen 13.3 mg/dL (9.0-27.0); Glucose 98 mg/dL (70-110)
[2025-01-27 19:02] LABS: Carbon Dioxide 23.3 mmol/L (21.6-31.8); Chloride 103 mmol/L (96-109); Sodium 140 mmol/L (135-145)
== END | disposition home or self-care (01) ==
LOC: LABPAT 14:42
PROVIDERS: ATTEND Thoracic Surgery (Cardiothoracic Vascular Surgery)
DX: Z01.818 Encounter for other preprocedural examination (principal); R22.2 Localized swelling, mass and lump, trunk
CPT/HCPCS: 80051; 82565; 82947; 84520; 85025; 85610; 85730; 86850; 86900; 86901; 93005